=== PATIENT | female | born 1955 | race Caucasian/White ===

== ENCOUNTER → 2016-10-25 | Outpatient (CLI) | payer MEDICARE, OTHER | LOC: KOH-I 14:15 | DX: M25.561 Pain in right knee (principal); M25.551 Pain in right hip; M54.5 Low back pain; M25.461 Effusion, right knee | CPT/HCPCS: 72110; 73502; 73562 ==

== ENCOUNTER → 2016-12-23 | Outpatient (CLI) | payer MEDICARE, OTHER | LOC: KOH-I 09:52 | DX: M79.672 Pain in left foot (principal); S93.332A Other subluxation of left foot, initial encounter | CPT/HCPCS: 73700 ==

== ENCOUNTER → 2020-07-22 | Outpatient (CLI) | payer MEDICARE, OTHER | LOC: KOH-I 10:23 | DX: J32.8 Other chronic sinusitis (principal) | CPT/HCPCS: 70486 ==